=== PATIENT | female | born 1955 | race Caucasian/White ===

== ENCOUNTER 2017-03-10 17:19 | Emergency (ER) | payer MEDICAID ==
[~2017-03-10] VITALS: Ht 167.6 cm; Wt 64.6 kg
[~2017-03-10 17:19] MED LIST: DIVA250T48 PO; ESCI10TA47 PO; FLUT16SP NAS; IPRA4AER INH; LEVO25TA9 PO; MECL-103 PO; METF500T4 PO; METO25TA6 PO; PANT20TA13 PO; PROC-14 PO; RIVA20TA PO; SIMV20TA6 PO; ZIPR40CA27 PO
--- NOTE | 2017-03-10 17:20 | NUR ---
STATUS DOZES OFF EASILY. COOPERATIVE. NO PAIN
--- OUTSIDE RECORDS SUMMARY | 2017-03-10 17:22 | XMS REPORT | Continuity of Care Document ---
Author Author [facility] Organization [facility] Address Unknown Phone Unavailable Care Team Providers Care Rail Car Driver Name Role Phone JORDAN SPICER MD Primary Care Physician [phone] Insurance Providers Guarantor Rekha Purcell Address [address] [place] [address] Email DENIED/NO TO PT PORT Payer [facility] Policy Number [id number] Subscriber's Name Kal YanciRekha Relationship 18 Self Effective Date 16 Expiration Date 16 Advance Directives Directive Response Recorded Date/Time Ordered Resuscitation Status Full Code 08/04/16 12:36pm Problems Active Problems Medical Problem Onset Date Status Asthma Unknown Chronic BPPV (benign paroxysmal positional vertigo) Unknown Chronic COPD (chronic obstructive pulmonary disease) Unknown Chronic Confusion Unknown Acute Cough Unknown Acute DM type 2 (diabetes mellitus, type 2) Unknown Chronic Depression Unknown Chronic Diarrhea Unknown Acute Essential (primary) hypertension Unknown Chronic GERD (gastroesophageal reflux disease) Unknown Chronic Headache Unknown Acute Hip pain, left Unknown Acute History of venous thromboembolism Unknown Chronic Hyperlipidemia Unknown Chronic Hypotension Unknown Acute Hypothyroidism Unknown Chronic Low back pain Unknown Acute Mental status, decreased Unknown Acute OA (osteoarthritis) Unknown Chronic Schizoaffective disorder, unspecified condition Unknown Chronic Seizure disorder Unknown Chronic Viral syndrome Unknown Acute Medications Current Home Medications Medication Dose Units Route Directions Days Qty Instructions Start Date Divalproex Sodium (Divalproex Sodium Er) 250 Mg Tab.er.24h 2 Tab Oral Am 03/21/15 Divalproex Sodium (Divalproex Sodium Er) 250 Mg Tab.er.24h 1 Tab Oral Bedtime 10/15/15 Escitalopram Oxalate 10 Mg Tablet 1 Tab Oral Daily 03/21/15 Fluticasone Propionate (Fluticasone Prop 50 Mcg/Actuation Nasal [place]) 120 [place]/16 G [place] 1 [place] Intranasal Daily 16 03/21/15 Ipratropium/Albuterol Sulfate (Combivent Respimat Inhal [place]) 120 Puff/4 Gm Inha 1-2 Puff Inhalation Four Times Daily 4 03/21/15 Levothyroxine Sodium 25 Mcg Tablet 1.5 Tab Oral Daily 10/15/15 Meclizine Hcl 25 Mg Tablet 25 Mg Oral Daily as needed for Vertigo 30 Days 30 Tablet 08/06/16 Metformin Hcl 500 Mg Tablet 1 Tab Oral Twice A Day 30 Days 60 Metoprolol Tartrate 25 Mg Tablet 0.25 Tab Oral Twice A Day Pantoprazole Sodium 20 Mg Tablet.dr 1 Tab Oral Daily 10/15/15 Prochlorperazine Maleate (Compazine) 10 Mg Tablet 10 Mg Oral Q6h/0300,0900, 1500,2100 as needed for Nausea &/Or Vomiting 14 Days 56 Tablet 08/06/16 Rivaroxaban (Xarelto) 20 Mg Tablet 1 Tab Oral Daily 30 Tablet 01/06 Simvastatin 20 Mg Tablet 1 Tab Oral Twice A Day 10/15/15 Ziprasidone Hcl 40 Mg Capsule 1 Tab Oral Twice A Day 10/15/15 Past Home Medications Medication Directions Ordered Status Diphenoxylate Hcl/Atropine (Lomotil 2.5-0.025 Mg Tablet) 1 Each Tablet, 2 Tab Oral Four Times Daily for Diarrhea 01/06/16 Discontinued Meclizine Hcl 25 Mg Tablet, 1 Tab Oral As Needed 10/15/15 Discontinued Metformin Hcl 500 Mg Tablet, 1 Tab Oral Daily 03/21/15 Discontinued Oxycodone Hcl/Acetaminophen (Oxycodone-Acetaminophen 5-325) 1 Each Tablet, 1 Tab Oral Every 4 Hours as needed for Pain 03/21/15 Discontinued Oxycodone Hcl/Acetaminophen (Percocet 5-325 Mg Tablet) 1 Each Tablet, 5 Mg Oral Four Times Daily for Pain 10/15/15 Discontinued Prochlorperazine Maleate (Compazine) 10 Mg Tablet, 10 Mg Oral Four Times Daily 01/06/16 Discontinued Warfarin Sodium 5 Mg Tablet, 1.5 Tab Oral 3 Times A Week 03/21/15 Discontinued Warfarin Sodium 5 Mg Tablet, 2 Tab Oral 4 Times A Week 10/15/15 Discontinued Social History Social History Problem Response Recorded Date/Time Onset Date Status Tobacco use 08/05/2016 2:42pm Unknown Active Reason for Hospitalization melena. 08/06/2016 2:43pm Not Applicable Not Applicable Hx Substance Use No 01/06/2016 4:49am Not Applicable Not Applicable Hx Alcohol Use No 01/06/2016 4:49am Not Applicable Not Applicable Has the pt used tobacco in the last 12 months Yes 08/04/2016 5:10pm Not Applicable Not Applicable Tobacco Usage none 10/15/2015 2:10pm Not Applicable Not Applicable Query Response Start Date Stop Date Smoking Status Current some day smoker Hospital Discharge Instructions Instructions: Care Instructions: I was in the hospital because (patient own words): I was bleeding Discharge Diet: ADA 1800 calorie daily diet. Discharge Activity: continue activity as per pre-hospitalization. Follow Up Appointments: -make patient follow up appointment with Dr. Turner at [facility] in 2 weeks. APPOINTMENT ON 08/14 9:15 -Dr Easton's office will call you in two weeks with your pathology results. They will let you know then any other follow up you will need. -all other appointments with other providers remain the same. Pending Lab / Results: Follow up w/ your PCP Patient Instructions: -if you can't afford your medications or make your appointments call us right away. -if any issues worsen and/or new ones occur be seen immediately. -restart your xarelto in 24 hours from now. Wound/Incision Care: -not applicable. Durable Medical Equipment: -not applicable. Pain Management/Treatment: -if any pain occurs let us know right away. Expected Signs/Symptoms: -you diarrhea should resolve. -your dark stools should resolve. Notify Physician If: -return to care immediately if dark stools, bloody stools, diarrhea, abdominal pain, dizziness, cough, fevers, chills, nausea, vomiting, coughing up blood, leg swelling, leg pain, shortness of breath, chest pain, vomiting blood or coffee ground material occur. During Business Hours:: Please call the physician's office at [phone] for any questions or concerns. After Business Hours:: Please call [phone] and have the check writing machine operator page the provider photovoltaic subcontractor for [employer]. Condition at time of discharge: Good Plan of Care Discharge Date 08/06/16 6:55pm Disposition 01 DISCHARGED HOME, SELF-CARE Instructions/Education Provided DI for Gastrointestinal Bleeding Prescriptions See Medication Section Additional Instructions/Education -tell patient to restart xarelto 24 hours from now. -don't discharge until Dr. Turner gives verbal order and sees patient later today. -please give patient discharge instructions in telugu. Care Plan and Goals See Discharge Instructions Section Functional Status Query Response Date Recorded Mobility Status Ambulatory w/assist August 06, 2016 2:43pm Assistive Devices None August 06, 2016 2:43pm Activity Limitations None August 06, 2016 2:43pm Feeding Ability Independent August 06, 2016 2:43pm Toileting Ability Independent August 06, 2016 2:43pm Grooming Ability Independent August 06, 2016 2:43pm Dressing Ability Independent August 06, 2016 2:43pm Driving Ability Independent August 06, 2016 2:43pm Housework Ability Independent August 06, 2016 2:43pm Meal Preparation Ability Independent August 06, 2016 2:43pm Stair Climbing Ability Independent August 06, 2016 2:43pm Ability to complete ADL's impeded by No change August 06, 2016 2:43pm Cognitive/Perceptual Impairments Impaired vision August 06, 2016 2:43pm Visual Assistive Devices With patient August 04, 2016 11:00am Allergies, Adverse Reactions, Alerts Allergen Type Severity Reaction Status Last Updated Morphine Allergy Unknown Active 10/15/15 Ibuprofen Adverse Reaction Mild BOTHERS STOMACH Active 10/15/15 TB SKIN TEST Allergy Unknown Active 05/29/08 Immunizations Query Response on File Recorded Date/Time Hx Influenza Vaccination No 08/04/16 5:10pm Hx Pneumococcal Vaccination No 08/04/16 5:10pm Hx Influenza Vaccination No 08/04/16 5:10pm Influenza Vaccine Hx April01/06/16 4:49am Vital Signs Acute Vital Signs Vital Response Date/Time Temperature (Fahrenheit) 97.8 deg F (96.8 - 99.1) 08/06/2016 5:31pm Temperature (Calculated Celsius) 36.66988 degrees C (36.0 - 37.3) 08/06/2016 5:31pm Temperature Source Oral 08/06/2016 5:31pm Pulse Rate (adult) 78 bpm (60 - 100) 08/06/2016 5:31pm Respiratory Rate 18 breaths/min (10 - 20) 08/06/2016 5:31pm O2 Sat by Pulse Oximetry 98 % (90 - 100) 08/06/2016 5:31pm Oxygen Delivery Method Room Air 08/06/2016 5:31pm Oxygen Delivery Method Room Air 08/06/2016 4:28pm Blood Pressure 130/72 mm Hg 08/06/2016 5:31pm Blood Pressure Source Automatic Cuff 08/06/2016 5:31pm Height (Feet) 5 feet 08/06/2016 2:01pm Height (Inches) 2.00 inches 08/06/2016 2:01pm Weight (Kilograms) 69.500 kg 08/06/2016 7:15am Body Mass Index (BMI) 28.0 08/04/2016 10:55am Results Laboratory Results Test Name Result Units Flags Reference Collection Date/Time Result Date/ Time Comments White Blood Count 7.7 T/MM3 4.5-11.0 08/06/2016 3:58am 08/06/2016 5: 28am Red Blood Count 4.04 M/MM3 4.00-5.20 08/06/2016 3:58am 08/06/2016 5: 28am Hemoglobin 12.8 GM/DL 12-16 08/06/2016 3:58am 08/06/2016 5:28am Hematocrit 39.2 % 36-46 08/06/2016 3:58am 08/06/2016 5:28am Mean Corpuscular Volume 97.0 UM3 80-100 08/06/2016 3:58am 08/06/2016 5: 28am Mean Corpuscular Hemoglobin 31.7 UUG 26-34 08/06/2016 3:58am 2015 5:28am Mean Corpuscular Hemoglobin Concent 32.7 GM/DL 31-37 08/06/2016 3:58am 08/06/2016 5:28am RDW Standard Deviation 46.1 FL 36.9-50.2 08/06/2016 3:58am 08/06/2016 5 :28am Platelet Count 165 T/MM3 130-400 08/06/2016 3:58am 08/06/2016 5:28am Mean Platelet Volume 12.6 UM3 H 9.4-12.4 08/06/2016 3:58am 08/06/2016 5: 28am Neutrophils (%) (Auto) 46.1 % 33-66 08/06/2016 3:58am 08/06/2016 5: 28am Lymphocytes (%) (Auto) 38.4 % 23-45 08/06/2016 3:58am 08/06/2016 5: 28am Monocytes (%) (Auto) 12.5 % H 0-9.0 08/06/2016 3:58am 08/06/2016 5:28am Eosinophils (%) (Auto) 2.3 % 0-4 08/06/2016 3:58am 08/06/2016 5:28am Basophils (%) (Auto) 0.4 % 0-2 08/06/2016 3:58am 08/06/2016 5:28am Immature Granulocyte % (Auto) 0.3 % 0.0-0.5 08/06/2016 3:58am 2015 5:28am Absolute Neutrophils (auto) 3.5 T/MM3 1.8-7.7 08/06/2016 3:58am 2015 5:28am Absolute Lymphocytes (auto) 2.9 T/MM3 1-4.8 08/06/2016 3:58am 2015 5:28am Absolute Monocytes (auto) 1.0 T/MM3 H 0-0.8 08/06/2016 3:58am 2015 5:28am Absolute Eosinophils (auto) 0.2 T/MM3 0-0.5 08/06/2016 3:58am 2015 5:28am Absolute Basophils (auto) 0.0 T/MM3 0-0.2 08/06/2016 3:58am 08/06/2016 5:28am Absolute Immature Granulocyte (auto 0.02 T/MM3 0.00-0.03 08/06/2016 3: 58am 08/06/2016 5:28am Prothromb Time International Ratio 1.62 H 0.99-1.21 08/04/2016 12:56pm 08/04/2016 1:19pm THERAPUTIC RANGE=2.00-3.00 FOR ANTI-THROMBOSIS THERAPUTIC RANGE=2.50-3.50 FOR IMPLANTED VALVE Activated Partial Thromboplast Time 46.0 SEC H 24-36 08/04/2016 12:56pm 08/04/2016 1:19pm Icterus Index < 2 0-7 08/06/2016 3:58am 08/06/2016 5:34am Chemistry Specimen Hemolysis < 15 0-25 08/06/2016 3:58am 08/06/2016 5 :34am 0-25: Specimen Exhibited No Hemolysis. Turbidity < 20 0-20 08/06/2016 3:58am 08/06/2016 5:34am Sodium Level 142 MEQ/L 134-144 08/06/2016 3:58am 08/06/2016 5:34am Potassium Level 3.3 MEQ/L L 3.6-5 08/06/2016 3:58am 08/06/2016 5:34am Chloride Level 105 MEQ/L 98-107 08/06/2016 3:58am 08/06/2016 5:34am Carbon Dioxide Level 23 MEQ/L 22-30 08/06/2016 3:58am 08/06/2016 5: 34am Anion Gap 14 MEQ/L 5-15 08/06/2016 3:58am 08/06/2016 5:34am Blood Urea Nitrogen < 2.0 MG/DL D L 7-17 08/06/2016 3:58am 08/06/2016 5: 37am Creatinine 0.7 MG/DL 0.7-1.2 08/06/2016 3:58am 08/06/2016 5:34am BUN/Creatinine Ratio 10 RATIO 6-26 08/05/2016 4:14am 08/05/2016 5:13am Glomerular Filtration Rate Calc 85 08/06/2016 3:58am 08/06/2016 5: 34am Glucose Level 110 MG/DL 65-110 08/06/2016 3:58am 08/06/2016 5:34am Calculated Osmolality 275 MOSM/KG 261-280 08/05/2016 4:14am 08/05/2016 5:13am Calcium Level 9.4 MG/DL 8.4-10.2 08/06/2016 3:58am 08/06/2016 5:34am Phosphorus Level 3.5 MG/DL 2.5-4.5 08/04/2016 12:56pm 08/04/2016 1: 22pm Total Bilirubin 0.40 MG/DL 0.20-1.30 08/05/2016 4:14am 08/05/2016 5: 13am Alkaline Phosphatase 47 U/L 38-126 08/05/2016 4:14am 08/05/2016 5:13am Total Protein 6.8 G/DL 6.3-8.2 08/05/2016 4:1408/05/2016 5:13am Albumin 3.3 G/DL L 3.5-5.0 08/05/2016 4:1408/05/2016 5:13am Globulin 3.5 G/DL 2.4-3.6 08/05/2016 4:1408/05/2016 5:13am Albumin/Globulin Ratio 0.9 RATIO L 1.1-2.2 08/05/2016 4:14am 08/05/2016 5:13am Aspartate Amino Transf (AST/SGOT) 16 U/L 14-36 08/05/2016 4:14am 2015 5:13am Alanine Aminotransferase (ALT/SGPT) 17 U/L 9-52 08/05/2016 4:14am 08/05 5:13am Total Creatine Kinase 34 U/L 30-135 08/04/2016 12:56pm 08/04/2016 1: 22pm Troponin I < 0.012 ng/ml 0-0.12 08/04/2016 12:56pm 08/04/2016 1:34pm Troponin values with a difference of 55% increase from orginal troponin value represent a true biological DELTA value. (%increase Calc=Orginal Troponin value, divided by subsequent Troponin value, multiplied by 100) C-Reactive Protein < 5.0 MG/L 0-9 08/04/2016 12:56pm 08/04/2016 2:01pm Magnesium Level 1.9 MG/DL 1.6-2.3 08/04/2016 12:56pm 08/04/2016 2:01pm Valproic Acid (Depakene) Level 57.2 UG/ML 50-120 08/04/2016 12:56pm 1:28pm Thyroid Stimulating Hormone (TSH) 1.32 MIU/L 0.47-4.68 08/04/2016 12: 56pm 08/04/2016 2:29pm Stool for White Cells NEGATIVE NEGATIVE 08/05/2016 6:57pm 08/05/2016 8:10pm YEAST OBSERVED Stool Campylobacter PCR NEGATIVE NEGATIVE 08/05/2016 6:57pm 2015 9:12pm Stool C. difficile Toxin (PCR) NEGATIVE NEGATIVE 08/05/2016 6:57pm 9:12pm Stool Plesiomonas shigelloides PCR NEGATIVE NEGATIVE 08/05/2016 6: 57pm 08/05/2016 9:12pm Stool Salmonella PCR NEGATIVE NEGATIVE 08/05/2016 6:57pm 08/05/2016 9 :12pm Stool Vibrio (PCR) NEGATIVE NEGATIVE 08/05/2016 6:57pm 08/05/2016 9: 12pm Stool Vibrio cholera (PCR) NEGATIVE NEGATIVE 08/05/2016 6:57pm 2015 9:12pm Stool Yersinia enterocolitica (PCR) NEGATIVE NEGATIVE 08/05/2016 6: 57pm 08/05/2016 9:12pm Stool Enteroaggregative E. coli PCR NEGATIVE NEGATIVE 08/05/2016 6: 57pm 08/05/2016 9:12pm Stool Enteropathogenic E. coli (PCR N/A NEGATIVE 08/05/2016 6:57pm 9:12pm Stool Enterotoxigenic Ecoli PCR NEGATIVE NEGATIVE 08/05/2016 6:57pm 08/05/2016 9:12pm Stool E. coli Shiga Toxins NEGATIVE NEGATIVE 08/05/2016 6:57pm 2015 9:12pm Stool E coli O157 PCR N/A NA/NEG 08/05/2016 6:57pm 08/05/2016 9:12pm Stool Shigella/EIEC (PCR) NEGATIVE NEGATIVE 08/05/2016 6:57pm 2015 9:12pm Stool Cryptosporidium PCR NEGATIVE NEGATIVE 08/05/2016 6:57pm 2015 9:12pm Stool Cyclospora species Detection NEGATIVE NEGATIVE 08/05/2016 6: 57pm 08/05/2016 9:12pm Stool Entamoeba (PCR) NEGATIVE NEGATIVE 08/05/2016 6:57pm 08/05/2016 9:12pm Stool Giardia Lamblia PCR NEGATIVE NEGATIVE 08/05/2016 6:57pm 2015 9:12pm Stool Adenovirus (PCR) NEGATIVE NEGATIVE 08/05/2016 6:57pm 2015 9:12pm Stool Astrovirus (PCR) NEGATIVE NEGATIVE 08/05/2016 6:57pm 2015 9:12pm Stool Norovirus GI/GII PCR NEGATIVE NEGATIVE 08/05/2016 6:57pm 2015 9:12pm Stool Rotavirus A PCR NEGATIVE NEGATIVE 08/05/2016 6:57pm 08/05/2016 9:12pm Stool Sapovirus (PCR) NEGATIVE NEGATIVE 08/05/2016 6:57pm 08/05/2016 9:12pm Urine Collection Type CLEANCATCH-MIDSTREAM 08/04/2016 6:29pm 2015 6:39pm Urine Color YELLOW YELLOW 08/04/2016 6:29pm 08/04/2016 6:39pm Urine Turbidity SLT CLDY CLEAR 08/04/2016 6:29pm 08/04/2016 7:04pm - -- 08/04/16 1904 --- UTURB previously reported as: CLEAR Urine Specific [place] 1.025 1.015-1.025 08/04/2016 6:29pm 2015 6:39pm Urine pH 6.0 5.0-8.0 08/04/2016 6:29pm 08/04/2016 6:39pm Urine Leukocyte Esterase NEGATIVE NEGATIVE 08/04/2016 6:29pm 2015 6:39pm Urine Nitrite NEGATIVE NEGATIVE 08/04/2016 6:29pm 08/04/2016 6:39pm Urine Protein NEGATIVE NEGATIVE 08/04/2016 6:29pm 08/04/2016 6:39pm Urine Glucose (UA) NEGATIVE NEGATIVE 08/04/2016 6:29pm 08/04/2016 6: 39pm Urine Ketones 1+ A NEGATIVE 08/04/2016 6:pm 08/04/2016 6:39pm Urine Urobilinogen 0.2 EU/DL NORMAL 08/04/2016 6:29pm 08/04/2016 6: 39pm Urine Bilirubin NEGATIVE NEGATIVE 08/04/2016 6:29pm 08/04/2016 6: 39pm Urine Blood 1+ A NEGATIVE 08/04/2016 6:29pm 08/04/2016 6:39pm Urine WBC 3-5 /HPF 0-5 08/04/2016 6:pm 08/04/2016 7:20pm --- 1920 --- UR WBC previously reported as: 10-20 H /HPF Urine RBC 1-3 /HPF 0-3 08/04/2016 6:29pm 08/04/2016 7:04pm Urine Squamous Epithelial Cells 10-20 08/04/2016 6:29pm 08/04/2016 7:04pm Urine Bacteria 4+ H NEGATIVE 08/04/2016 6:29pm 08/04/2016 7:04pm Urine Culture Indicated CULT NOT INDICATED 08/04/2016 6:29pm 2015 7:20pm Glucometer 122 mg/dL H 65-110 08/06/2016 5:59am 08/06/2016 1:07pm Name: REKHA PURCELL Unit #: [id number] : 1955 Sex: F Admit Date: 08/04/16 Loc / Svc: MED Discharge Date: DIAGNOSTIC IMAGING REPORT Report #: [id number] [facility] [place] OCT[place] INDICATION: ITS.REASON: cough PROCEDURE: CHEST 2-VIEWS UPRIGHT (PA \T\ LAT) Encounter: Initial COMPARISON: 01/16/2016 FINDINGS: The lungs are clear without evidence of focal abnormal airspace opacity. There is no pleural effusion or pneumothorax. The heart is mildly enlarged but there is no pulmonary vascular engorgement or widening of the mediastinum. Degenerative changes of the spine and shoulders; small bone infarcts are suspected in the proximal right humerus. IMPRESSION: No acute cardiopulmonary disease. . Procedures Procedure Status Date Provider(s) EGD (esophagogastroduodenoscopy) Completed 08/06/16 LUIGI EASTON MD Colonoscopy Completed 08/06/16 LUIGI EASTON MD Encounters Encounter Location Arrival/Admit Date Discharge/Depart Date Attending Provider Discharged Inpatient [facility] 08/05/16 2:47pm 08/06/16 6:55pm WALKER TURNER DO
[2017-03-10 17:27] VITALS: Ht 167.6 cm; Wt 64.6 kg
--- NOTE | 2017-03-10 17:27 | NUR ---
DR ALVAREZ IN
[2017-03-10] MEDS ORDERED: NORMAL SALINE 1,000 ML IV ONE (17:30)
--- NOTE | 2017-03-10 17:33 | ERPDOC ---
Departure Disposition Decision Date: March 10, 2017 Disposition Decision Time: 19:10 (JO HASSAN DO) Disposition: 02 [place] [facility] [place]ression () Impression: Primary Impression: TIA (transient ischemic attack) Transient cerebral ischemia type: unspecified Qualified Codes: G45.9 - Transient cerebral ischemic attack, unspecified Severity: Moderate (JO HASSAN DO) Condition: Improved Seen By: Physician only (JO HASSAN DO) Referrals: JORDAN SPICER MD (PCP) WALKER TURNER DO (Family) Problems/Meds/Labs Reviewed?: Yes Medications reviewed and manag: Yes (JO HASSAN DO) Follow up care ordered?: Yes Mental Status: Alert, Oriented (JO HASSAN DO) HPI - CVA/Neuro General Chief Complaint: Weakness/Neuro Symptoms Stated Complaint: TIA Time Seen by Provider: 17:30 Source: patient, EMS Exam Limitations: clinical condition, language barrier () Time Seen by Provider: 18:13 (JO HASSAN DO) HPI - CVA/NEURO Initial Comments 61yo woman presented to the ER by EMS for TIA sx. Pts family called EMS, because pts her stroke sx had returned. Pt has a h/o stroke, left sided. When EMS arrived to transport, pts sx were back to baseline. Occurred At: home Onset/Timing: Rapid Duration: 1/2 hour Pain/Severity Scale: Now & Worst: 0/10 Severity: moderate Associated Symptoms: slurred speech, weakness Hx of Similar Symptoms: Yes Affected Areas/Deficit Locatio: Left Arm, Left Leg, Speech () Allergies: Coded Allergies: morphine (Unverified Allergy, Unknown, 03/10/17) ibuprofen (Verified Adverse Reaction, Mild, BOTHERS STOMACH, 03/10/17) Uncoded Allergies: TB SKIN TEST (Allergy, Unknown, 05/29/08) Past History Patient Surgical History -fallopian tube removal in 1996 () Past Medical History Metabolic: diabetes, hypertension, hypothyroidism Neurological: CVA, TIA Musculoskeletal: back pain Psychological: anxiety, depression () Neurological: CVA (JO HASSAN DO) Surgical History Reproductive/: hysterectomy () Reproductive/: (JO HASSAN DO) Family History Family History: Negative (JO HASSAN DO) Vaccines Hx Influenza Vaccination: No Hx Pneumococcal Vaccination: No (EB ) Social History Does patient use chewing tobac: No # of Packs/Tins per Day: 0.5 # of Years: 7 Second Hand Exposure: No Substance Use Type: does not use ([facility] ) Smoking Status: Current every day smoker Substance Use Type: does not use Alcohol Intake: none (JO HASSAN DO) Review of Systems Constitutional Constitutional: DENIES: chills, fever (JO HASSAN DO) Eyes General: DENIES: erythema, exudate Vision: DENIES: acuity, blurring (JO HASSAN DO) ENMT Balance: DENIES: ataxia, falling to one side Mouth/Throat: DENIES: change in swallowing, painful swallowing Teeth: DENIES: pain Jaw: DENIES: pain (JO HASSAN DO) Cardiovascular Cardiac: DENIES: chest pain, dyspnea on exertion Rhythm/Rate: DENIES: irregular beat, palpitations Vascular: DENIES: pedal edema, unilateral swelling (JO HASSAN DO) Pulmonary Respiratory: DENIES: cough, dyspnea, pleuritic chest pain (JO HASSAN DO) GI Upper Abdomen: DENIES: nausea, pain, vomiting Lower Abdomen: DENIES: diarrhea, pain (JO HASSAN DO) General: DENIES: dysuria, frequency (JO HASSAN DO) Musculoskeletal General: DENIES: joint pain, tenderness (JO HASSAN DO) Integumentary Skin: DENIES: itching, rash (JO HASSAN DO) Neurological General: change in strength, dysarthria ([facility] ) Psychiatric Psychiatric: DENIES: emotional instability, suicidal ideation/attempt (JO HASSAN DO) Endocrine Endocrine: DENIES: polydipsia, polyphagia (JO HASSAN DO) Hematologic/Lymphatic Hematologic/Lymphatic: DENIES: frequent nosebleeds, lymphadenopathy (JO HASSAN DO) Allergic/Immunological Allergic/Immunoligical: DENIES: allergic reactions, hives (JO HASSAN DO) All other Systems All Other Systems: Reviewed and Negative ([facility] ) Physical Exam General General Nourishment: well nourished, well developed, appears stated age, no acute distress, adult, obese General Body Habitus: well groomed () Vitals and Pain First Documented Vital Signs Date Time Temp Pulse Resp B/P Pulse Ox O2 Delivery O2 Flow Rate FiO2 03/10/17 17:19 98.3 71 16 115/63 91 Room Air (HASSANJO DO) Vitals and Pain Weight: Kilograms: 64.600 Height (feet): 5 Height (inches): 6.00 Triage Pain Scale: () RN VS reviewed by Provider: Yes () Normal Exams: Head: Normocephalic w/o trauma Eyes: Pupils are PERRLA w/ EOMI, No scleral icterus, irritation ENMT: No facial trauma, nasal exudates, pharyngeal erythema Neck: Full range of motion, without adenopathy, JVD Lymphatic: No lymphadenopathy Musculoskeletal: No tenderness, or deformity noted Integumentary: No rashes, hives, or bruising noted Neurologic: Patient is alert, and oriented Psychiatric: Patient exhibits, appropriate attention () Respiratory (brief) Respiratory: FOUND: clear all wilhelm, equal bilaterally, symmetrical, NOT FOUND : rales, wheezes () Cardiovascular (brief) Cardiac: FOUND: regular rate, regular rhythm, NOT FOUND: click, gallop, murmur , pedal edema, peripheral edema, rub Capillary Refill: <2 sec Pulses: all distal extremities, equal, strong () Abdomen (brief) Abdominal Brief: FOUND: bowel normo active x4, soft, NOT FOUND: distended, hepatosplenomegaly, pulsatile mass, tender ( DO) Differential Diagnoses Considering: Thrombotic CVA, Hemorrhagic CVA, DKA, Drug Overdose, Hypo/ hypercalcemia, Hypo/hyperglycemia, Hypo/hypernatremia, Medication Effect, Psychogenic, TIA () Progress Results/Orders Orders Procedure Category Date Status Time Oxygen Administration EDM 03/10/17 Transmitted 17:30 Iv Lock (Ed Only) EDM 03/10/17 Transmitted 17:30 Bgm (Ed) EDM 03/10/17 Transmitted 17:30 Nothing By Mouth (Ed EDM 03/10/17 Transmitted Only) 17:30 Cbc W/Auto LAB 03/10/17 Complete Diff-Reflex Manual 17:30 Cmp - Comprehensive LAB 03/10/17 Complete Metabolic 17:30 Troponin I W LAB 03/10/17 Complete Hemolysis Index 17:30 INR LAB 03/10/17 Complete 17:30 PTT LAB 03/10/17 Complete 17:30 EKG EKG 03/10/17 Taken 17:30 Ct Head W/O Contrast CT 03/10/17 Taken 17:30 Normal Saline (Normal PHA 03/10/17 Complete Saline Iv) 17:30 Elevate Hob NAVI 03/10/17 In Process 17:30 Measure Vital Signs NAVI 03/10/17 In Process 17:30 Ua, Dip Wreflex LAB 03/10/17 Complete [employer] 18:13 Chest 1 View RAD 03/10/17 Taken 18:13 Aspirin (Asa) PHA 03/10/17 Complete 19:30 (JO HASSAN DO) Lab Results Laboratory Tests Test 03/10/17 17:32 03/10/17 18:24 03/10/17 19:00 Glucometer 136mg/dL White Blood Count 8.7T/MM3 Red Blood Count 3.81M/MM3 Hemoglobin 12.5GM/DL Hematocrit 37.6% Mean Corpuscular Volume 98.7UM3 Mean Corpuscular Hemoglobin 32.8UUG Mean Corpuscular Hemoglobin Concent 33.2GM/DL RDW Standard Deviation 48.8FL Platelet Count 146T/MM3 Mean Platelet Volume 12.4UM3 Immature Granulocyte % (Auto) 0.1% Neutrophils (%) (Auto) 60.1% Lymphocytes (%) (Auto) 28.2% Monocytes (%) (Auto) 10.3% Eosinophils (%) (Auto) 1.0% Basophils (%) (Auto) 0.3% Absolute Immature Granulocyte (auto 0.01T/MM3 Absolute Neutrophils (auto) 5.2T/MM3 Absolute Lymphocytes (auto) 2.4T/MM3 Absolute Monocytes (auto) 0.9T/MM3 Absolute Eosinophils (auto) 0.1T/MM3 Absolute Basophils (auto) 0.0T/MM3 Prothromb Time International Ratio 1.10 Activated Partial Thromboplast Time 28.3SEC Turbidity < 20 Sodium Level 142MEQ/L Potassium Level 3.9MEQ/L Chloride Level 105MEQ/L Carbon Dioxide Level 27MEQ/L Anion Gap 10MEQ/L Blood Urea Nitrogen 14.0MG/DL Creatinine 0.8MG/DL Glomerular Filtration Rate Calc 73 BUN/Creatinine Ratio 18RATIO Glucose Level 133MG/DL Calculated Osmolality 276MOSM/KG Calcium Level 8.5MG/DL Total Bilirubin 0.30MG/DL Icterus Index < 2 Aspartate Amino Transf (AST/SGOT) 14U/L Alanine Aminotransferase (ALT/SGPT) 26U/L Alkaline Phosphatase 43U/L Troponin I < 0.012ng/ml Total Protein 6.2G/DL Albumin 3.0G/DL Globulin 3.2G/DL Albumin/Globulin Ratio 0.9RATIO Chemistry Specimen Hemolysis < 15 Urine Collection Type Cleancatch-midstream Urine Color Yellow Urine Turbidity Clear Urine pH 5.5 Urine Specific [place] 1.015 Urine Protein Negative Urine Glucose (UA) Negative Urine Ketones Negative Urine Blood Negative Urine Nitrite Negative Urine Bilirubin Negative Urine Urobilinogen 0.2EU/DL Urine Leukocyte Esterase Negative Urinalysis Comment Microscopic not ind. (JO HASSAN DO) Lab Results Laboratory Tests Test 03/10/17 17:32 Glucometer 136mg/dL ([facility] DO) Medications Current ED Medications Sodium Chloride (Normal Saline IV) 1,000 ml @ 0 mls/hr Q0M ONCE IV ; Start 03/10 at 17:30; Stop 03/10/17 at 17:31; Status DC (JO HASSAN DO) Progress Progress Labs / imaging were discussed in detail with the patient and family and questions are answered. Patient is given aspirin 300 mg rectally times one. Patient has returned to baseline health status. Her NIH is currently 0. Patient was not a candidate for TPA due to a low NIH, exact unknown time of onset, and the fact that the patient is anticoagulated on Xarelto. Patient is admitted to the service of Dr. Shaw after discussion with Dr. Borjas the hospitalist. After discussion it is agreeable that the patient will be admitted in observation status to telemetry. No further orders from admitting physician who is in agreement with the current plan of management. Patient is admitted to the hospital in observation status in improved condition. At 1930, the patient changed her mind and requested sign out from the hospital AGAINST MEDICAL ADVICE. Patient was counseled that signing out AGAINST MEDICAL ADVICE from the hospital can result in and/or permanent disability. Patient is alert and oriented 4 and capable of sound medical decision-making. She is clinically sober. Counseling is provided in Austrian for the patient. Patient verbalizes agreement and understanding. Repeat attempt at counseling is made in order to get the patient to stay and undergo further evaluation and treatment in the hospital but she declines. Patient is verbally instructed to follow-up with [facility] as soon as possible. Patient declines discharge instructions. Patient verbalizes agreement and understanding. Patient is instructed to return to the emergency Department if her condition worsens or changes in any manner or if she changes her mind and she wishes to be re-evaluated. Patient's family is supportive of the patient's decision. Patient signed the AMA form and leaves the emergency department AGAINST MEDICAL ADVICE. (JO HASSAN DO) EKG EKG : Rate: 60-100 Rhythm: sinus Scalf: normal QRS: normal Intervals: normal ST/T: normal Interpreted by: signing physician (ISABEL ALVAREZ DO) Xray Xray : Xray: CXR Portable Interpretation: Normal, Interpreted by Me (JO HASSAN DO) CT CT : CT: Head no contrast Interpretation: Normal, Faxed Report (JO HASSAN DO) ISABEL ALVAREZ DO March 10, 2017 17:33 JO HASSAN DO March 10, 2017 19:51
--- NOTE | 2017-03-10 17:50 | NUR ---
TO CT PER CART
--- NOTE | 2017-03-10 17:58 | NUR ---
RETURNED FROM CT
--- NOTE | 2017-03-10 18:02 | NUR ---
REPORT TO ROHINI MIGUEL
--- NOTE | 2017-03-10 18:21 | NUR ---
STATUS PT DENIES PAIN AT THIS TIME. LAB AT BEDSIDE. PT SPEAKS SOME KYRGYZ.
[2017-03-10 18:32] LABS: BASOPHILS % (AUTO) 0.3 % (0-2); EOSINOPHILS # (AUTO) 0.1 T/MM3 (0-0.5); HCT - HEMATOCRIT 37.6 % (36-46); HGB - HEMOGLOBIN 12.5 GM/DL (12-16); IMMATURE GRANULOCYTE # (AUTO) 0.01 T/MM3 (0.00-0.03); IMMATURE GRANULOCYTE % (AUTO) 0.1 % (0.0-0.5); LYMPHOCYTES # (AUTO) 2.4 T/MM3 (1-4.8); LYMPHOCYTES % (AUTO) 28.2 % (23-45); MEAN CORPUSCULAR HGB 32.8 UUG (26-34); MEAN CORPUSCULAR HGB CONC(MCHC 33.2 GM/DL (31-37); MEAN CORPUSCULAR VOLUME 98.7 UM3 (80-100); MEAN PLATELET VOLUME 12.4 UM3 (9.4-12.4); MONOCYTES # (AUTO) 0.9 T/MM3 (0-0.8); MONOCYTES % (AUTO) 10.3 % (0-9.0); NEUTROPHILS #(AUTO)-ABSOLUTE 5.2 T/MM3 (1.8-7.7); NEUTROPHILS % (AUTO) 60.1 % (33-66); RED BLOOD COUNT 3.81 M/MM3 (4.00-5.20); WBC - WHITE BLOOD COUNT 8.7 T/MM3 (4.5-11.0)
[2017-03-10 18:35] LABS: INR 1.1 (0.76-1.04); PTT 28.3 SEC (24-36)
[2017-03-10 18:38] LABS: ALBUMIN/GLOBULIN RATIO 0.9 RATIO (1.1-2.2); ALKALINE PHOSPHATASE 43 U/L (38-126); ALT (SGPT) 26 U/L (9-52); ANION GAP 10 MEQ/L (5-15); AST (SGOT) 14 U/L (14-36); BUN/CREATININE RATIO 18 RATIO (6-26); CALCIUM 8.5 MG/DL (8.4-10.2); CHLORIDE 105 MEQ/L (98-107); CO2 - CARBON DIOXIDE 27 MEQ/L (22-30); CREATININE 0.8 MG/DL (0.7-1.2); GLOMERULAR FILTRATION RATE 73; GLUCOSE 133 MG/DL (65-110); POTASSIUM 3.9 MEQ/L (3.6-5); SODIUM 142 MEQ/L (134-144); TOTAL PROTEIN 6.2 G/DL (6.3-8.2)
[2017-03-10 19:09] LABS: BLOOD, URINE NEGATIVE (NEGATIVE); COLOR,URINE YELLOW (YELLOW); LEUKOCYTE ESTERASE ,URINE NEGATIVE (NEGATIVE); NITRITE,URINE NEGATIVE (NEGATIVE); UROBILINOGEN,URINE 0.2 EU/DL (NORMAL)
[2017-03-10] MEDS ORDERED: ASPIRIN 300 MG RECTAL SUPPOSITORY RECTALLY ONE (19:30)
[2017-03-10] MEDS ORDERED: ONDANSETRON 4mg/2ml INJECTION IV PRN (19:30)
[2017-03-10] MEDS ORDERED: LORAZEPAM 2 MG/ML INJECTION IV PRN (19:30)
[2017-03-10] MEDS ORDERED: ALBUTEROL/IPRATROPIUM INHAL. 2.5mg-0.5mg/3ml Neb. AEROSOL PRN (19:30)
[2017-03-10] MEDS ORDERED: OXYCODONE/APAP 5mg/325mg TABLET PO PRN (19:30)
[2017-03-10 20:20] VITALS: BP 132/83; PULSE 74; RESP 30; TEMP 98.3; O2SAT 94
--- NOTE | 2017-03-10 20:20 | NUR ---
DEPART/AMA PT DEPARTED AMA. PT VERBALIZES/ACKNOWLEDGES RISKS. PERSONAL BELONGINGS SENT WITH PT. ESCORTED TO ED EXIT VIA WHEEL CHAIR. FAMILY AT SIDE.
[2017-03-10] MEDS ORDERED: ZIPRASIDONE 40 MG CAPSULE PO SCH (21:00)
[2017-03-10] MEDS ORDERED: SIMVASTATIN 20 MG TABLET PO SCH (21:00)
[2017-03-10] MEDS ORDERED: DIVALPROEX ER 250 MG TABLET PO SCH (22:00)
[2017-03-11] MEDS ORDERED: LEVOTHYROXINE 25 MCG TABLET PO SCH (07:00)
--- NOTE | 2017-03-11 08:17 | DI ---
Indication: ITS.REASON: tia PROCEDURE: CHEST 1 VIEW: Encounter: Initial Comparison: None FINDINGS: The lungs are clear. There is no abnormal airspace opacity, pleural effusion or pneumothorax identified. The heart size, pulmonary vasculature and mediastinum are within normal limits. No significant skeletal abnormality is seen. IMPRESSION: No acute cardiopulmonary abnormality. There is a preliminary report by [facility]. .
--- NOTE | 2017-03-11 08:22 | DI ---
Indication: ITS.REASON: Left-sided weakness H/o TIA/CVA PROCEDURE: CT HEAD W/O CONTRAST: Encounter: Initial Comparison: February 14, 2016 Technique: Axial CT images through the head were performed without contrast. Iterative Reconstruction dose reducing technique was utilized. FINDINGS: Old bilateral infarcts with right parietal and right frontal lobe encephalomalacia. The ventricles are of normal size, shape, and contour for the patient's age. There are numerous areas of low attenuation in the white matter which most likely represent changes from chronic microvascular ischemia. The brainstem, cerebellum, and cerebral hemispheres otherwise have a normal morphology and CT attenuation. There is no evidence of midline displacement. No hemorrhage, signs of acute territorial stroke, mass effect, mass lesions, or edema is evident. The visualized portions of the skull base, midface, and calvarium demonstrate no abnormality. The paranasal sinuses are well aerated and free of significant disease. The tympanic and mastoid cavities appear normal. IMPRESSION: No acute intracranial abnormality or hemorrhage. There is a preliminary report by [facility]. .
[2017-03-11] MEDS ORDERED: FLUTICASONE NASAL SPRAY 50 MCG NAS SCH (09:00)
[2017-03-11] MEDS ORDERED: ESCITALOPRAM 10 MG TABLET PO SCH (09:00)
[2017-03-11] MEDS ORDERED: RIVAROXABAN 20 MG TABLET PO SCH (09:00)
[2017-03-11] MEDS ORDERED: DIVALPROEX ER 500 MG TABLET PO SCH (09:00)
--- NOTE | 2017-03-11 10:41 | NUR ---
SARAH BAR IS 2. Addendum: 03/11/17 at 1041 by WALKER WORKMAN SW Amended: Links added.
[2017-03-12 02:28] LABS: RISK FACTOR 2.5 RATIO (0-4.0)
== END 2017-03-10 20:20 | disposition left against medical advice (07) ==
LOC: ED 17:19 → UNDOADMOB 19:20 → EDHOLD 19:20
DX: G45.9 Transient cerebral ischemic attack, unspecified (principal); I10 Essential (primary) hypertension; E11.9 Type 2 diabetes mellitus without complications; Z79.4 Long term (current) use of insulin; F17.200 Nicotine dependence, unspecified, uncomplicated
CPT/HCPCS: 36415; 80053; 80061; 81003; 82948; 83036; 84484; 85025; 85610; 85730; 93005